=== PATIENT | female | born 1985 | race Caucasian/White ===

== ENCOUNTER → 2017-11-15 | Outpatient (CLI) | payer MEDICAID | LOC: LAB 10:50 | PROVIDERS: ATTEND Emergency Medicine | DX: R30.0 Dysuria (principal) | CPT/HCPCS: 87086 ==

== ENCOUNTER 2018-09-29 10:20 | Emergency (ER) | payer MEDICAID ==
[2018-09-29] MEDS ORDERED: ONDANSETRON HCL INJ/PF 4 MG/2 ML SDV IV ONE (11:59)
[2018-09-29] MEDS ORDERED: NORMAL SALINE 1000 ML 1,000 ML IV ONE (11:59)
--- NOTE | 2018-09-29 12:04 | ER Document Report ---
ED General - General Chief Complaint: Syncope Stated Complaint: POSSIBLE SYNCOPE Time Seen by Provider: 09/29/18 11:53 Primary Care Provider: ALYSON ALONSO MD [Primary Care Provider] - Follow up as needed Mode of Arrival: Ambulatory Information source: Patient, [facility] Records Notes: 33-year-old female at approximately 15 weeks and 2 days per reported last menstrual period which was 06/14/2018 presents after a syncopal episode just prior to arrival. Patient states that she was in the elevator with her mother going up to see her doctor when she smelled something that made her nauseous and told her mother that she felt like she was going to pass out. She states the next thing she remembered she was being picked up by her mom. Mother reports that patient lost consciousness for approximately 10-20 seconds. Patient currently complaining of nausea. States that she has had 4 days of persistent vomiting. She had a recent visit with her primary care physician who confirmed her through urine. Patient denies any abdominal pain, vaginal bleeding, preceding chest pain, shortness of breath. She has otherwise been well. TRAVEL OUTSIDE OF THE [place] IN LAST 30 DAYS: No - HPI Onset: Just prior to arrival Onset/Duration: Sudden Quality of pain: No pain Severity: None Pain Level: Denies Associated symptoms: Nausea, Vomiting. denies: Chest pain, Headache, Hurts to breath, Shortness of breath, Sweating Exacerbated by: Denies Relieved by: Denies Similar symptoms previously: No Recently seen / treated by doctor: Yes - Related Data Allergies/Adverse Reactions: iodine [Iodine] Allergy (Intermediate, Verified 09/29/18 10:22) Hives latex [Latex] Allergy (Intermediate, Verified 09/29/18 10:22) Hives morphine [Morphine] Allergy (Mild, Verified 09/29/18 10:22) swelling Past Medical History - General Information source: Patient - Social History Smoking Status: Former Smoker Frequency of alcohol use: None Drug Abuse: None Lives with: Spouse/Significant other Family History: Reviewed & Not Pertinent Patient has suicidal ideation: No Patient has homicidal ideation: No - Past Medical History Cardiac Medical History: Denies: Hx Coronary Artery Disease, Hx Heart Attack, Hx Hypertension Pulmonary Medical History: Reports: Hx Asthma Denies: Hx Bronchitis, Hx COPD, Hx Pneumonia Neurological Medical History: Denies: Hx Cerebrovascular Accident, Hx Seizures Musculoskeletal Medical History: Denies Hx Arthritis Psychiatric Medical History: Reports: Hx Attention Deficit Hyperactivity Disorder, Hx Bipolar Disorder, Hx Depression Past Surgical History: Reports: Hx Tonsillectomy. Denies: Hx Hysterectomy - Immunizations Hx Diphtheria, Pertussis, Tetanus Vaccination: Yes Review of Systems - Review of Systems Notes: REVIEW OF SYSTEMS: CONSTITUTIONAL : Denies fever, chills, or sweats. Denies recent illness. Denies weight loss, recent hospitalizations. EENT: Denies visual changes, eye pain. Denies sore throat, oral lesions, difficulty swallowing. CARDIOVASCULAR: Denies chest pain. Denies palpitations. Denies lower extremity edema. RESPIRATORY: Denies cough. Denies shortness of breath, wheezing. GASTROINTESTINAL: Denies abdominal pain or distention. Denies diarrhea. Denies blood in vomitus, stools, or per rectum. Denies black, tarry stools. Denies constipation. GENITOURINARY: Denies difficulty urinating, painful urination, frequency, blood in urine, or vaginal discharge. MUSCULOSKELETAL: Denies back or neck pain or stiffness. Denies joint pain or s welling. SKIN: Denies rash, lesions or sores. HEMATOLOGIC : Denies easy bruising or bleeding. LYMPHATIC: Denies swollen glands. NEUROLOGICAL: Denies confusion or altered mental status. Denies dizziness or lightheadedness. Denies headache. Denies weakness or paralysis. Denies problems difficulty with ambulation, slurred speech. Denies sensory loss, numbness, or tingling. Denies seizures. PSYCHIATRIC: Denies anxiety or stress. Denies depression, suicidal ideation, or homicidal ideation. Denies visual or auditory hallucinations. Physical Exam - Vital signs Vitals: Temp Pulse Resp BP Pulse Ox 98.1 F 75 14 103/69 99 09/29/18 10:36 09/29/18 10:36 09/29/18 10:36 09/29/18 10:36 09/29/18 10:36 - Notes Notes: PHYSICAL EXAMINATION: GENERAL: Well-appearing, well-nourished and in no acute distress. HEAD: Atraumatic, normocephalic. EYES: Pupils equal round and reactive to light, extraocular movements intact, conjunctiva are normal. ENT: Nares patent, oropharynx clear without exudates. Moist mucous membranes. NECK: Normal range of motion, supple without lymphadenopathy LUNGS: Breath sounds clear to auscultation bilaterally and equal. No wheezes rales or rhonchi. HEART: Regular rate and rhythm without murmurs ABDOMEN: Soft, nontender, nondistended abdomen. No guarding, no rebound. No masses appreciated. Female : deferred Musculoskeletal: Normal range of motion, no pitting or edema. No cyanosis. NEUROLOGICAL: Cranial nerves grossly intact. Normal speech, normal gait. Normal sensory, motor exams PSYCH: Normal mood, normal affect. SKIN: Warm, Dry, normal turgor, no rashes or lesions noted. Course - Re-evaluation Re-evalutation: 09/29/18 14:51 Laboratory 09/29/18 09/29/18 12:00 12:19 Beta HCG, Quant 01818.00 H Total Beta HCG POSITIVE Urine Color LES Urine Appearance SLIGHTLY-CLOUDY Urine pH 6.0 Ur Specific Kyle 1.027 Urine Protein 100 H Urine Glucose (UA) NEGATIVE Urine Ketones 20 H Urine Blood NEGATIVE Urine Nitrite NEGATIVE Urine Bilirubin SMALL H Urine Urobilinogen 4.0 H Ur Leukocyte Esterase TRACE H Urine WBC (Auto) 4 Urine RBC (Auto) 5 Squamous Epi Cells Auto 4 Urine Mucus (Auto) MANY Urine Ascorbic Acid 40 H Temp Pulse Resp BP Pulse Ox 98.1 F 72 18 113/75 100 09/29/18 13:59 09/29/18 13:59 09/29/18 13:59 09/29/18 13:59 09/29/18 13:59 09/29/18 14:52 33-year-old female at approximately 15 weeks and 2 days per reported last menstrual period which was 06/14/2018 presents after a syncopal episode just prior to arrival. Patient states that she was in the elevator with her mother going up to see her doctor when she smelled something that made her nauseous and told her mother that she felt like she was going to pass out. She states the next thing she remembered she was being picked up by her mom. Mother reports that patient lost consciousness for approximately 10-20 seconds. Patient currently complaining of nausea. States that she has had 4 days of persistent vomiting. She had a recent visit with her primary care physician who confirmed her through urine. Patient denies any abdominal pain, vaginal bleeding, preceding chest pain, shortness of breath. She has otherwise been well. Vital signs reviewed and within normal limits. Patient does not appear toxic she does appear mildly dehydrated. She is able to ambulate without difficulty. Urinalysis is without evidence of infection. Patient is and has a beta quant of over 26,000. Patient did receive IV fluids, Zofran. Prior to my reevaluation patient is requesting discharge home. She reports resolution of her nausea. Patient does have an upcoming [facility] appointment in 2 days. She was urged to return if she experienced any abdominal pain or vaginal bleeding. Patient was evaluated and treated as appropriate for the patient's presenting symptoms and complaint, with consideration of any critical or life threatening conditions that may be associated with their obtained history and exam as noted above. All results were discussed with patient and her mother who is at the bedside patient provided the opportunity to ask questions, and express concerns. Patient was educated on treatments based on their presumed diagnosis as noted above. At this time we will discharge the patient with return precautions and follow-up recommendations. Verbal discharge instructions given a the bedside. Medication warnings reviewed. Patient is in agreement with this plan and has verbalized understanding of return precautions. After careful consideration I feel that that patient can be safely discharged from the emergency department, they were advised to followup with a primary care physician in 2-3 days. Dictation on this chart was performed using voice recognition software and may result in unintended grammatical, spelling, syntax or errors. - Vital Signs Vital signs: Temp Pulse Resp BP Pulse Ox 98.1 F 72 18 113/75 100 09/29/18 13:59 09/29/18 13:59 09/29/18 13:59 09/29/18 13:59 09/29/18 13:59 - Laboratory Laboratory results interpreted by me: 09/29/18 09/29/18 12:00 12:19 Beta HCG, Quant 21807.00 H Urine Protein 100 H Urine Ketones 20 H Urine Bilirubin SMALL H Urine Urobilinogen 4.0 H Ur Leukocyte Esterase TRACE H Urine Ascorbic Acid 40 H Discharge - Discharge Clinical Impression: Dehydration Syncope Qualifiers: Syncope type: unspecified Qualified Code(s): R55 - Syncope and collapse Nausea & vomiting Qualifiers: Vomiting type: unspecified Vomiting Intractability: non-intractable Qualified Code(s): R11.2 - Nausea with vomiting, unspecified Qualifiers: Weeks of gestation: unspecified Qualified Code(s): Z34.90 - Encounter for supervision of normal , unspecified, unspecified trimester Condition: Good Disposition: HOME, SELF-CARE Instructions: Dehydration ([facility]), Intravenous (IV) Fluids ([facility]), Vomiting ([facility]) Additional Instructions: Please keep your scheduled appointment with your [facility] in 2 days on October 01, 2017. Please return if you experience any abdominal pain, vaginal bleeding, or any other symptoms that are concerning to you. Follow up with your [id number] hours for further care or return to the ED IMMEDIATELY if symptoms worsen or you have any concerns. If you cannot afford to follow up with your primary care physician a list of low cost clinics have been provided at the end of your discharge papers as well. Most prescribed medications have multiple side effects. The safest thing to do is when filling your prescription speak to your pharmacist regarding possible interactions with your normal home medications and over the counter medications such as Ibuprofen, Tylenol, Benadryl. If you experience any symptoms that cause you discomfort or concern you should discontinue the medication immediately and return to the emergency room or call your primary care physician. Prescriptions: Ondansetron [Zofran Odt 4 mg Tablet] 1 tab PO Q6H PRN #15 tab.rapdis PRN Reason: For Nausea/Vomiting Referrals: ALYSON ALONSO MD [Primary Care Provider] - Follow up as needed
[2018-09-29 13:04] LABS: APPEARANCE,URINE SLIGHTLY-CLOUDY; BILIRUBIN,URINE SMALL (NEGATIVE); COLOR,URINE AMBER; GLUCOSE, URINE NEGATIVE (NEGATIVE); KETONES,URINE 20 mg/dL (NEGATIVE); LEUKOCYTE ESTERASE,URINE TRACE (NEGATIVE); NITRITE,URINE NEGATIVE (NEGATIVE); PROTEIN,URINE 100 mg/dL (NEGATIVE); URINE SPECIFIC GRAVITY 1.027
[2018-09-29 14:03] VITALS: BP 113/75
--- NOTE | 2018-09-30 13:08 | EKG REPORT ---
SEVERITY:- NORMAL ECG - SINUS RHYTHM : Confirmed by: Abhinav Lopes MD 30-Sep-2018 13:07:24
== END 2018-09-29 14:03 | disposition home or self-care (01) ==
LOC: ER 10:20
DX: O26.892 Other specified pregnancy related conditions, second trimester (principal); R55 Syncope and collapse; O21.9 Vomiting of pregnancy, unspecified; O99.282 Endocrine, nutritional and metabolic diseases complicating pregnancy, second trimester; E86.0 Dehydration; O99.512 Diseases of the respiratory system complicating pregnancy, second trimester; J45.909 Unspecified asthma, uncomplicated; Z3A.15 15 weeks gestation of pregnancy; Z87.891 Personal history of nicotine dependence; Z91.040 Latex allergy status; Z88.5 Allergy status to narcotic agent
CPT/HCPCS: 93005; 99284; 96361; 96374; 36415; 84702; 81001; 93010; J2405; J7030

== ENCOUNTER 2019-02-07 13:03 | Inpatient (IN) | payer MEDICAID ==
[2019-02-07 13:41] LABS: BACTERIA (WET MOUNT) 4+ BACTERIA SEEN; RBCS (WET MOUNT) FEW RBCS SEEN; T.VAGINALIS (WET MOUNT) NO TRICHOMONAS SEEN; WBCS (WET MOUNT) 2+ WBCS SEEN; YEAST (WET MOUNT) NO YEAST SEEN
[2019-02-07 13:49] LABS: APPEARANCE,URINE SLIGHTLY-CLOUDY; BILIRUBIN,URINE NEGATIVE (NEGATIVE); COLOR,URINE YELLOW; GLUCOSE, URINE NEGATIVE (NEGATIVE); KETONES,URINE 20 mg/dL (NEGATIVE); LEUKOCYTE ESTERASE,URINE TRACE (NEGATIVE); NITRITE,URINE NEGATIVE (NEGATIVE); PROTEIN,URINE 30 mg/dL (NEGATIVE); URINE SPECIFIC GRAVITY 1.014
[2019-02-07 14:01] LABS: URINE AMPHETAMINES SCREEN NEGATIVE; URINE BARBITURATES SCREEN NEGATIVE; URINE BENZODIAZEPINES SCREEN NEGATIVE; URINE COCAINE SCREEN NEGATIVE; URINE MARIJUANA (THC) SCREEN NEGATIVE; URINE METHADONE SCREEN NEGATIVE; URINE PHENCYCLIDINE SCREEN NEGATIVE
[2019-02-07] MEDS ORDERED: RINGERS SOLUTION,LACTATED 1,000 ML IV PRN (14:19)
[2019-02-07] MEDS ORDERED: AMPICILLIN SODIUM 2 GM in NORMAL SALINE 100 ML IV ONE (14:19)
[2019-02-07] MEDS ORDERED: MAGNESIUM SULFATE 4 GM/100 ML RTUPB IV ONE ×2 (14:20→14:23)
[2019-02-07] MEDS ORDERED: MAGNESIUM SULFATE 20 GM/500 ML RTUINJ IV ONE (14:20)
[2019-02-07] MEDS ORDERED: ONDANSETRON HCL INJ/PF 4 MG/2 ML SDV IV ONE (14:20)
[2019-02-07] MEDS ORDERED: BETAMET ACET/BETAMET NA INJ 6 MG/1 ML ONE (14:20)
[2019-02-07] MEDS ORDERED: ONDANSETRON HCL INJ/PF 4 MG/2 ML SDV ONE (14:21)
[2019-02-07] MEDS ORDERED: MAGNESIUM SULFATE 20 GM/500 ML RTUINJ IV PRN (14:23)
[2019-02-07] MEDS ORDERED: BETAMET ACET/BETAMET NA INJ 6 MG/1 ML IM ONE (14:24)
--- NOTE | 2019-02-07 14:28 | Admission Physical ---
Datetime Report Generated by CPN: 02/07/2019 14:28 CURRENT ADMISSION Chief Complaint: Uterine Contractions Indication for Induction: Not Applicable Admit Impression : , Intrauterine ; Observation/Evaluation Admit Plan: Admit to Unit; Observation/Evaluation ALLERGIES Medication Allergies: Yes Medication Allergies: iodine/MO/Hives (02/07/2019); morphine/SD/swelling (02/07/2019); latex/MO/Hives (02/07/2019) Latex: Latex Allergies OBSTETRICAL HISTORY EDC: 03/21/2019 00:00 : 2 Para: 1 Term: 0 : 1 Livin Gestational Diabetes: No Rh Sensitization: No Incompetent Cervix: Unknown CELESTINO: No Infertility: No ART Treatment: No Uterine Anomaly: No IUGR: No Hx Previous C/S: No Macrosomia: No Hx Loss/Stillborn: No PIH: No Hx : No Placenta Previa/Abruption: No Depression/PP Depression: Yes PTL/PROM: Yes Post Hemorrhage: No Current Procedures: Ultrasound Obstetrical History Comments: G1- 2006 34 weeks PROM G2- current refused p17 SEE RECORDS Alcohol: No Marijuana : No Cocaine: No Other Illicit Drugs: No Cigarettes: Former Smoker. [id number] MEDICAL HISTORY Diabetes: No Blood Transfusion: No Pulmonary Disease (Asthma, TB): Yes Breast Disease: No Hypertension: No Child Support Officer Surgery: No Heart Disease: No Hosp/Surgery: Yes Autoimmune Disorder: No Anesthetic Complications: No Kidney Disease: No Abnormal Pap Smear: Yes Neuro/Epilepsy: No Psychiatric Disorders: Yes Other Medical Diseases: No Hepatitis/Liver Disease: No Significant Family History: No Varicosities/Phlebitis: No Trauma/Violence : No Thyroid Dysfunction: No Medical History Comments: scoliosis, bipolar, depression, anxiety, asthma- proair, tonsilectomy, endometriosis, ADHD, ovarian cyst INFECTIOUS HISTORY Infectious History Comments: HPV 2018, chlamydia- PHYSICAL EXAM General: Normal HEENT: Normal Neurologic: Normal Thyroid: Normal Heart: Normal Lungs: Normal Breast: Normal Back: Deferred Abdomen: Normal Genitourinary Exam: Normal Extremities: Normal DTRs: Normal Pelvic Type: Adequate Vital Signs: Reviewed VAGINAL EXAM Dilatation: 4 Effacement: 80 Station: 0 MEMBRANES Pooling: Negative Membranes: Intact FETUS A EGA: 34.0 Monitoring: External US FHR- Baseline: 130 Variability: Moderate 6-25bpm Decelerations: None FHR Category: Category I Admit Comment: Admit for magnesium, steroids and antibiotics. PLANS FOR LABOR AND DELIVERY Labor and Delivery: Other, Specify Pain Management: Natural Feeding Preference: Both Benefit of Breast Feed Discussed: Yes Circumcision: Yes INFORMED CONSENT Signature: with User ID: [email or web address]
[2019-02-07 14:49] LABS: ABSOLUTE BASOPHILS # (AUTO) 0.1 10^3/uL (0.0-0.2); ABSOLUTE LYMPHOCYTES (AUTO) 1.4 10^3/uL (0.5-4.7); ABSOLUTE MONOCYTES (AUTO) 0.8 10^3/uL (0.1-1.4); BASOPHILS % (AUTO) 0.5 % (0-2); HEMATOCRIT 34.1 % (36.0-47.0); HEMOGLOBIN 11.4 g/dL (12.0-15.5); LYMPHOCYTES % (AUTO) 10.8 % (13-45); MEAN CORPUSCULAR HEMOGLOBIN 27.7 pg (27.0-33.4); MEAN CORPUSCULAR HGB CONC 33.6 g/dL (32.0-36.0); MEAN CORPUSCULAR VOLUME 82 fl (80-97); MONOCYTES % (AUTO) 6.1 % (3-13); PLATELET COUNT 361 10^3/uL (150-450); RED BLOOD COUNT 4.13 10^6/uL (3.72-5.28); RED CELL DISTRIBUTION WIDTH 13.7 % (11.5-14.0); SEGMENTED NEUTROPHILS % (AUTO) 82.6 % (42-78); TOTAL CELLS COUNTED % (AUTO) 100 %; WHITE BLOOD COUNT 13.3 10^3/uL (4.0-10.5)
[2019-02-07] MEDS ORDERED: AMPICILLIN SOD INJ 2 GM VIAL ONE (14:53)
[2019-02-07] MEDS ORDERED: ONDANSETRON HCL 8 MG TABLET PO ONE (15:00)
[2019-02-07] MEDS ORDERED: AMPICILLIN SOD INJ 2 GM VIAL IV ONE (15:00)
[2019-02-07 15:20] LABS: CHLAM PCR NOT DETECTED (NOT DETECT)
[2019-02-07] MEDS ORDERED: NALBUPHINE HCL INJ 10 MG/1 ML AMPULE INJ ONE (16:12)
[2019-02-07] MEDS ORDERED: PROMETHAZINE HCL INJ 25 MG/1 ML VIAL IV ONE (16:12)
[2019-02-07] MEDS ORDERED: PROMETHAZINE HCL INJ 25 MG/1 ML VIAL ONE (16:18)
[2019-02-07] MEDS ORDERED: NALBUPHINE HCL INJ 10 MG/1 ML AMPULE ONE (16:18)
[2019-02-07] MEDS ORDERED: LIDOCAINE 1% INJ-PF (10 MG/ML) 30 ML SDV ONE (17:40)
[2019-02-07] MEDS ORDERED: OXYTOCIN/NORMAL SALINE 20 UNIT/1,000 ML RTUINJ ONE (17:40)
[2019-02-07] MEDS ORDERED: MISOPROSTOL 0.2 MG TABLET ONE (17:40)
[2019-02-07] MEDS ORDERED: NA PHOS,M-B/NA PHOS,DI-BA (ADULT) 133 ML ENEMA PR PRN (17:52)
[2019-02-07] MEDS ORDERED: PROMETHAZINE HCL 25 MG TABLET PO PRN (17:52)
[2019-02-07] MEDS ORDERED: ACETAMINOPHEN WITH CODEINE #3 TABLET PO PRN ×2 (17:52)
[2019-02-07] MEDS ORDERED: PSEUDOEPHEDRINE HCL 30 MG TABLET PO PRN (17:52)
[2019-02-07] MEDS ORDERED: GLYCERIN/WITCH HAZEL LEAF 1 EACH MED..WIPE TP PRN (17:52)
[2019-02-07] MEDS ORDERED: DIPHENHYDRAMINE HCL 25 MG CAPSULE PO PRN (17:52)
[2019-02-07] MEDS ORDERED: OXYTOCIN/NORMAL SALINE 20 UNIT/1,000 ML RTUINJ IV PRN (17:52)
[2019-02-07] MEDS ORDERED: DIPH/PERTUSS(ACELL)/TETANUS VAC/PF 0.5 ML SYR (>=10YO) IM PRN (17:52)
[2019-02-07] MEDS ORDERED: ZOLPIDEM TARTRATE 5 MG TABLET PO PRN (17:52)
[2019-02-07] MEDS ORDERED: MAGNESIUM HYDROXIDE SUSP 30 ML UDCUP PO PRN (17:52)
[2019-02-07] MEDS ORDERED: DIBUCAINE 1% OINTMENT 56 GM TP PRN (17:52)
[2019-02-07] MEDS ORDERED: PROMETHAZINE HCL 25 MG SUPP.RECT PR PRN (17:52)
[2019-02-07] MEDS ORDERED: BENZOCAINE/MENTHOL AEROSOL SPRAY 56 ML TOP PRN (17:52)
[2019-02-07] MEDS ORDERED: PROMETHAZINE HCL INJ 25 MG/1 ML VIAL IV PRN (17:52)
[2019-02-07] MEDS ORDERED: MEASLES,MUMPS&RUBELLA VACC/PF 0.5 ML VIAL SUBCUT PRN (17:52)
[2019-02-07] MEDS ORDERED: ACETAMINOPHEN 650 MG SUPP.RECT PR PRN (17:52)
[2019-02-07] MEDS ORDERED: AMPICILLIN SOD INJ 1 GM VIAL IV SCH (18:00)
[2019-02-07] MEDS ORDERED: AMPICILLIN SODIUM 1 GM in NORMAL SALINE 50 ML IV SCH (18:21)
[2019-02-07] MEDS: DOCUSATE SODIUM 100 MG CAPSULE PO SCH (21:15)
[2019-02-07] MEDS: FERROUS SULFATE 325 MG TABLET PO SCH (21:16)
[2019-02-07] MEDS: IBUPROFEN 800 MG TABLET PO SCH (21:36)
[2019-02-07] MEDS: FAMOTIDINE 20 MG TABLET PO SCH (21:36)
[2019-02-08] MEDS: IBUPROFEN 800 MG TABLET PO SCH ×3 (05:00→21:16)
[2019-02-08 07:17] LABS: HEMATOCRIT 33.6 % (36.0-47.0); HEMOGLOBIN 10.9 g/dL (12.0-15.5); MEAN CORPUSCULAR HEMOGLOBIN 27.1 pg (27.0-33.4); MEAN CORPUSCULAR HGB CONC 32.5 g/dL (32.0-36.0); MEAN CORPUSCULAR VOLUME 83 fl (80-97); PLATELET COUNT 314 10^3/uL (150-450); RED BLOOD COUNT 4.03 10^6/uL (3.72-5.28); RED CELL DISTRIBUTION WIDTH 13.4 % (11.5-14.0); WHITE BLOOD COUNT 21.9 10^3/uL (4.0-10.5)
[2019-02-08] MEDS: FAMOTIDINE 20 MG TABLET PO SCH ×2 (09:54→21:16)
[2019-02-08] MEDS: PRENATAL VITAMIN W DHA CAPSULE PO SCH (09:54)
[2019-02-08] MEDS: DOCUSATE SODIUM 100 MG CAPSULE PO SCH ×2 (09:54→17:23)
[2019-02-08] MEDS: FERROUS SULFATE 325 MG TABLET PO SCH ×2 (09:56→17:23)
[2019-02-08] MEDS: SENNOSIDES/DOCUSATE 8.6-50 MG 1 EACH TABLET PO SCH (09:56)
--- NOTE | 2019-02-08 12:28 | Delivery Summary ---
Del Sum A-C Datetime Report Generated by CPN: 02/08/2019 12:27 DELIVERY PERSONNEL DELIVERY PERSONNEL: [id number] Delivery Doctor:: Krystyna Pineda MD Labor and Delivery Nurse:: Viviane Leyva RNjacquard fixer Nurse:: Mee Solo RN Nursery Nurse:: Jannette Adams RN Nursery Nurse:: Jacqui Ronquillo RN Co Founder And President/TECHNICAL OPERATIONS MANAGER: Anuja Mccartney, PRESCHOOL SUBSTITUTE TEACHER Co Founder And President/TECHNICAL OPERATIONS MANAGER: Antonia Frandy, PRESCHOOL SUBSTITUTE TEACHER MATERNAL INFORMATION Delivery Anesthesia: None Medications After Delivery: Pitocin Bolus-Please Comment Meds After Delivery Comment: pitocin 20 units in 1 L NS bolusing per order Estimated Blood Loss (ml): 250 Delivery QBL: 75 Maternal Complications: Other Maternal Complications: Other Complication Details: labor LABOR SUMMARY EDC: 03/21/2019 00:00 No. Babies in Womb: 1 Attempted: No Labor Anesthesia: IV Sedation LABOR INFORMATION Reason for Induction: Not Applicable Onset of Labor: 02/06/2019 23:00 Complete Dilatation: 02/07/2019 17:33 Oxytocin: N/A Group B Beta Strep: unknown Antibiotics # of Doses: 1 Antibiotics Time of Last Dose: 1500 Name of Antibiotic Given: ampicillin Steroids Given: Partial Course MEMBRANES Membranes Rupture Method: Spontaneous Rupture of Membranes: 02/07/2019 17:33 Length of Rupture (hr): 0.12 Amniotic Fluid Color: Clear Amniotic Fluid Amount: Small Amniotic Fluid Odor: None STAGES OF LABOR Stage 1 hr: 18 Stage 1 min: 33 Stage 2 hr: 0 Stage 2 min: 7 Stage 3 hr: 0 Stage 3 min: 5 Total Time in Labor hr: 18 Total Time in Labor min: 45 VAGINAL DELIVERY Episiotomy: None Laceration #1: None Laceration Extension #1: N/A Laceration Repair: Not Applicable Sponge Count Correct: Vaginal Sweep Performed Sharps Count Correct: Yes CSECTION DELIVERY Primary Indication: N/A Secondary Indication: N/A CSection Incidence: N/A Labor: N/A Elective: N/A CSection Incision: N/A BABY A INFORMATION Delivery Date/Time: 02/07/2019 17:40 Method of Delivery: Vaginal Born in Route : No : N/A Forceps: N/A Vacuum Extraction: N/A Shoulder Dystocia : No PRESENTATION/POSITION BABY A Presentation: Cephalic Cephalic Presentation: Vertex Vertex Position: Left Occipital Anterior Breech Presentation: N/A PLACENTA INFORMATION BABY A Placenta Delivery Time : 02/07/2019 17:45 Placenta Method of Delivery: Spontaneous Placenta Method of Delivery: Spontaneous Placenta Status: Delivered SCORES BABY A Heart Rate 1 min: >100 bpm Resp Effort 1 min: Slow, Irregular Reflex Irritability 1 min: Cough or Sneeze or Pulls Away Muscle Tone 1 min: Active Motion Color 1 min: Blue/Pale Resuscitation Effort 1 min: Tactile Stimulation SCORE 1 MIN: 7 Heart Rate 5 min: >100 bpm Resp Effort 5 min: Slow, Irregular Reflex Irritability 5 min: Cough or Sneeze or Pulls Away Muscle Tone 5 min: Active Motion Color 5 min: Blue/Pale Resuscitation Effort 5 min: Tactile Stimulation SCORE 5 MIN: 7 INFORMATION BABY A Gestational Age at Delivery: 34.0 Gestational Status: Late - 34- 36.6 Weeks Outcome : Liveborn Condition : Stable Sex: Male IDENTIFICATION BABY A Infant Verification Date/Time: 02/07/2019 18:03 ID Band Number: [id number] Mother's Name Verified: Yes Infant RN Verifying Infant: HYany Michauds, RN and C. [place], RN WEIGHT/LENGTH BABY A Birthweight (gm): 2037 Weight (lb): 4 Weight (oz): 8 Infant Length (in): 17.00 Length (cm): 43.18 CORD INFORMATION BABY A No. Cord Vessels: 3 Nuchal Cord : N/A Cord Blood Taken: Yes-For Storage (Mom's Blood type +) Infant Suction: None ASSESSMENT BABY A Infant Complications: None Physical Findings at Delivery: Within Normal Limits Skin to Skin: Yes Skin to Skin Time (min): 1 Housing Counselor/ALS Called : Yes Infant Care By: Douglas Ronquillo RN, Douglas Adams RN Transferred To: NICU BABY B INFORMATION : N/A SIGNATURES Signature: with User ID: [email or web address]
[2019-02-08] MEDS ORDERED: MEASLES,MUMPS&RUBELLA VACC/PF 0.5 ML VIAL SUBCUT PRN (12:30)
[2019-02-08] MEDS ORDERED: DIPH/PERTUSS(ACELL)/TETANUS VAC/PF 0.5 ML SYR (>=10YO) IM PRN (12:30)
[2019-02-08] MEDS: ACETAMINOPHEN 325 MG TABLET PO PRN (13:25)
--- NOTE | 2019-02-08 17:30 | PDOC PROGRESS REPORT ---
Subjective-OB Progress Note for:: 02/08/19 Subjective: 34yo G2 now P2 s/p ppd1. Ambulating, voiding and without difficult. Reports increased cramping when pumping and had some itching with T3 yesterday, desires different pain medication . No other concerns Physical Exam (OB) Vital Signs: Temp Pulse Resp BP Pulse Ox 97.4 F 52 L 18 145/79 H 100 02/08/19 07:29 02/08/19 07:29 02/07/19 20:20 02/08/19 07:29 02/08/19 07:29 Intake & Output 02/07/19 02/08/19 02/09/19 06:59 06:59 06:59 Intake Total 400 Balance 400 Weight 64 kg - General General Appearance: Appears well In distress: None - PIH/Pre-Eclampsia Clonus: Negative Headache: Absent Epigastric Pain: No Visual Changes: No - Episiotomy/Laceration Site Condition: N/A - Lochia Lochia Amount: Scant < 10 ml Lochia Color: Rubra/Red - Abdomen Hernia Present: No Fundal Description: Firm, Midline Fundal Height: u/u - u/2 - Respiratory Respiratory Status: No respiratory distress - Extremities Upper extremity: Normal inspection Lower extremities: Normal inspection - Neurological Cognition: Normal Orientation: AAOx4 - Psychological Associated symptoms: Normal affect, Normal mood Objective-Diagnostic Laboratory: 02/08/19 07:02 02/08/19 07:02 WBC 21.9 H RBC 4.03 Hgb 10.9 L Hct 33.6 L MCV 83 MCH 27.1 MCHC 32.5 RDW 13.4 Plt Count 314 Assessment and Plan(PN) - Assessment and Plan (1) delivery Is this a current diagnosis for this admission?: Yes Plan: routine pp care (2) Acute blood loss anemia Is this a current diagnosis for this admission?: Yes Plan: Increase dietary iron and FeSO4 BID - Time Spent with Patient Time with patient: Less than 15 minutes Medications reviewed and adjusted accordingly: Yes - Disposition Anticipated Discharge: Home Within: within 24 hours
[2019-02-09] MEDS: ACETAMINOPHEN 325 MG TABLET PO PRN (03:11)
[2019-02-09] MEDS: IBUPROFEN 800 MG TABLET PO SCH ×2 (05:12→13:48)
[2019-02-09 07:57] VITALS: BP 137/74
--- NOTE | 2019-02-09 10:04 | PDOC DISCHARGE SUMMARY ---
Final Diagnosis Discharge Date: 02/09/19 - Final Diagnosis (1) Acute blood loss anemia Is this a current diagnosis for this admission?: Yes (2) delivery Is this a current diagnosis for this admission?: Yes Discharge Data - Discharge Medication Home Medications: Budesonide/Formoterol Fumarate [Symbicort HFA 80-4.5 mcg Inhaler 6.9 gm] 2 puff IH ASDIR PRN 03/18/12 Lisdexamfetamine Dimesylate [Vyvanse] 20 mg PO DAILY 09/02/14 Ondansetron [Zofran Odt 4 mg Tablet] 1 tab PO Q6H PRN #15 tab.rapdis 09/29/18 Reason(s) for Admission: Onset of Labor, Labor Procedures: NST Intrapartum Procedure(s): Spontaneous Vaginal Delivery - Diagnosis Test Laboratory: Temp Pulse Resp BP Pulse Ox 98 F 50 L 18 137/74 H 98 02/09/19 07:28 02/09/19 07:28 02/09/19 07:28 02/09/19 07:28 02/09/19 07:28 02/07/19 02/07/19 02/08/19 13:09 14:28 07:02 RBC 4.13 4.03 Hgb 11.4 L 10.9 L Hct 34.1 L 33.6 L Urine Opiates Screen NEGATIVE - Discharge information/Instructions Discharge Activity: Balance Activity w/Rest, Pelvic Rest Discharge Diet: Regular Disposition: HOME, SELF-CARE Follow up with: [facility] in: 4
[2019-02-09] MEDS: PRENATAL VITAMIN W DHA CAPSULE PO SCH (10:39)
[2019-02-09] MEDS: DOCUSATE SODIUM 100 MG CAPSULE PO SCH (10:39)
[2019-02-09] MEDS: FAMOTIDINE 20 MG TABLET PO SCH (10:39)
[2019-02-09] MEDS: SENNOSIDES/DOCUSATE 8.6-50 MG 1 EACH TABLET PO SCH (10:39)
[2019-02-09] MEDS: FERROUS SULFATE 325 MG TABLET PO SCH (10:39)
== END 2019-02-09 14:30 | disposition home or self-care (01) | DRG 806 ==
LOC: LC 13:03 → LR 14:24 → 2S 20:15
PROVIDERS: ADMIT Obstetrics & Gynecology; ATTEND Obstetrics & Gynecology
PROC: 10E0XZZ Delivery of Products of Conception, External Approach (ICD-10-PCS; principal; 2019-02-07)
PROC: 3E0234Z Introduction of Serum, Toxoid and Vaccine into Muscle, Percutaneous Approach (ICD-10-PCS; 2019-02-09)
DX: O60.14X0 Preterm labor third trimester with preterm delivery third trimester, not applicable or unspecified (principal); D62 Acute posthemorrhagic anemia; Z37.0 Single live birth; O90.81 Anemia of the puerperium; O99.52 Diseases of the respiratory system complicating childbirth; O99.344 Other mental disorders complicating childbirth; F31.9 Bipolar disorder, unspecified; F41.9 Anxiety disorder, unspecified; J45.909 Unspecified asthma, uncomplicated; Z3A.34 34 weeks gestation of pregnancy; Z23 Encounter for immunization
CPT/HCPCS: 36415; 80307; 81001; 84112; 85025; 85027; 86592; 86850; 86900; 86901; 87081; 87210; 87491; 87591; 90715; 96372; J0290; J0702; J2300; J2405; J2550; J2590; J3475; J3490

== ENCOUNTER 2020-01-03 07:09 | Day surgery (SDC) | payer MEDICAID ==
[2019-12-29 10:16] LABS: APPEARANCE,URINE CLEAR; BILIRUBIN,URINE NEGATIVE (NEGATIVE); COLOR,URINE STRAW; GLUCOSE, URINE NEGATIVE (NEGATIVE); KETONES,URINE NEGATIVE (NEGATIVE); LEUKOCYTE ESTERASE,URINE TRACE (NEGATIVE); NITRITE,URINE NEGATIVE (NEGATIVE); PROTEIN,URINE NEGATIVE (NEGATIVE); URINE SPECIFIC GRAVITY 1.006; UROBILINOGEN,URINE NEGATIVE mg/dL (<2.0)
[2019-12-29 10:27] LABS: ADD MANUAL MICROSCOPIC YES
[2019-12-29 10:32] LABS: BACTERIA,URINE 2+ /HPF
[2019-12-29 10:38] LABS: HEMATOCRIT 38.8 % (36.0-47.0); MEAN CORPUSCULAR HEMOGLOBIN 29.7 pg (27.0-33.4); MEAN CORPUSCULAR HGB CONC 33.5 g/dL (32.0-36.0); MEAN CORPUSCULAR VOLUME 89 fl (80-97); PLATELET COUNT 368 10^3/uL (150-450); RED BLOOD COUNT 4.37 10^6/uL (3.72-5.28); RED CELL DISTRIBUTION WIDTH 12.6 % (11.5-14.0); WHITE BLOOD COUNT 6.1 10^3/uL (4.0-10.5)
[2019-12-29 11:02] LABS: ALBUMIN 4.4 g/dL (3.5-5.0); ALKALINE PHOSPHATASE 56 U/L (38-126); ANION GAP 6 (5-19); ASPARTATE AMINO TRANSFERASE 23 U/L (14-36); BILIRUBIN,TOTAL 0.5 mg/dL (0.2-1.3); BLOOD UREA NITROGEN 12 mg/dL (7-20); CALCIUM 9.6 mg/dL (8.4-10.2); CARBON DIOXIDE 31 mmol/L (22-30); CHLORIDE 102 mmol/L (98-107); GLUCOSE 92 mg/dL (75-110); TOTAL PROTEIN 7.3 g/dL (6.3-8.2)
[~2020-01-03 07:09] MED LIST: LACTATED RINGERS 1000 ML IV PRN; LIDOCAINE 0.5% INJ-PF (5 MG/ML) 50 ML SDV SUBCUT PRN
[2020-01-03] MEDS ORDERED: CEFAZOLIN 1 GM/D5W RTU 1 GM/50 ML RTUPB IV ONE (07:35)
[2020-01-03] MEDS ORDERED: ALBUTEROL SULFATE 0.083% NEB 2.5 MG/3 ML AMPUL NEB ONE (07:35)
[2020-01-03] MEDS ORDERED: DEXAMETHASONE SOD PHOSPHATE INJ 4 MG/1 ML VIAL ONE (09:19)
[2020-01-03] MEDS ORDERED: ONDANSETRON HCL INJ/PF 4 MG/2 ML SDV ONE (09:19)
[2020-01-03] MEDS ORDERED: MIDAZOLAM 2 MG/2 ML INJ ONE (09:19)
[2020-01-03] MEDS ORDERED: PROPOFOL INJ 200 MG/20 ML VIAL IV ONE (09:19)
[2020-01-03] MEDS ORDERED: FENTANYL CITRATE INJ/PF 250 MCG/5 ML AMPULE ONE (09:19)
[2020-01-03] MEDS ORDERED: BUPIVACAINE HCL 0.25 % INJ/PF (2.5 MG/1 ML) 30 ML VIAL ONE (09:21)
[2020-01-03] MEDS ORDERED: DIPHENHYDRAMINE HCL 50 MG/ML VIAL IV PRN (09:59)
[2020-01-03] MEDS ORDERED: PROMETHAZINE HCL INJ 25 MG/1 ML VIAL IV PRN (09:59)
[2020-01-03] MEDS ORDERED: FENTANYL CITRATE INJ/PF 100 MCG/2 ML AMPUL IV PRN ×2 (09:59)
[2020-01-03] MEDS ORDERED: MEPERIDINE HCL/PF INJ 25 MG/1 ML DISP.SYRIN IV PRN (09:59)
--- NOTE | 2020-01-03 10:48 | Operative Report ---
Operative Report DATE OF SURGERY: 01/03/20 PREOPERATIVE DIAGNOSIS: Pelvic pain hypermenorrhea POSTOPERATIVE DIAGNOSIS: Same plus endometriosis OPERATION: LAVH bilateral salpingectomy SURGEON: KATHARINE OPP ANESTHESIA: GA TISSUE REMOVED OR ALTERED: Uterus and tubes ESTIMATED BLOOD LOSS: 50 cc PROCEDURE: Patient placed in the dorsolithotomy was prepped draped sterile fashion. Next was placed cervix visualized and grasped with a Hulka tenaculum took the speculum was removed. During the abdomen were somewhat like a stimulator incision was made trocar was reduced in flexion abdomen. Pelvis noted to be normal left ovary and right ovary were approximately same size and both were free. Puncture made lateral to the first on the left and a 5 trocar was reduced. Harmonic scalpel the left tube was divided along the mesosalpinx discontinue down the broad ligament to the ascending branch of the uterine artery on the left. Stage was P on the right. It was decided intraoperatively that the left ovary appeared to be completely normal with no adhesions no enlarged was no cyst and decided to leave that in situ. Lateral flap was created with sharp dissection. And deflated and the instruments removed. Attention turned to the pelvis where the speculum is placed cervix visualized the Hulka neck was removed cervix grasped with a Toni thyroid clamp posterior cul-de-sacs entered with sharp dissection in the posterior parietoperitoneum sutured posterior cuff with 2-0 Vicryl. Sharply circumscribed. Tear peritoneum was entered with sharp dissection. Serial clamps the centimeters each pedicle being divided and suture 2-0 Vicryl. This continued to the level where the above incisions were encountered and the uterus and tubes were removed. Urine remains good after our procedure she was taken recovery in good condition.
[2020-01-03] MEDS ORDERED: ONDANSETRON HCL 8 MG TABLET PO PRN (11:01)
[2020-01-03] MEDS ORDERED: HYDROMORPHONE HCL 2 MG TABLET PO PRN (11:01)
[2020-01-03] MEDS ORDERED: FENTANYL CITRATE INJ/PF 100 MCG/2 ML AMPUL ONE (11:06)
[2020-01-03] MEDS: FENTANYL CITRATE INJ/PF 100 MCG/2 ML AMPUL IV PRN ×2 (11:06→11:25)
[2020-01-03] MEDS ORDERED: PROMETHAZINE HCL INJ 25 MG/1 ML VIAL ONE (11:07)
[2020-01-03] MEDS ORDERED: IBUPROFEN 800 MG TABLET PO SCH (14:00)
[2020-01-03] MEDS ORDERED: ROCURONIUM BROMIDE INJ 50 MG/5 ML VIAL IV ONE (14:43)
[2020-01-03] MEDS ORDERED: GLYCOPYRROLATE 1 MG/5 ML VIAL ONE (14:43)
[2020-01-03 16:42] VITALS: BP 135/73
== END 2020-01-03 17:46 | disposition home or self-care (01) ==
LOC: OROUT 07:09 → 2N 12:00 → OROUT 17:46
PROVIDERS: ATTEND Obstetrics & Gynecology Gynecology
DX: N92.0 Excessive and frequent menstruation with regular cycle (principal); N80.9 Endometriosis, unspecified; R10.2 Pelvic and perineal pain; J45.909 Unspecified asthma, uncomplicated; Z88.5 Allergy status to narcotic agent; N94.19 Other specified dyspareunia; Z91.040 Latex allergy status; Z87.891 Personal history of nicotine dependence; Z03.818 Encounter for observation for suspected exposure to other biological agents ruled out
CPT/HCPCS: 86900; 86901; 36415; 86850; 85027; 87635; 81025; 80053; 81001; 88307 ×2; 58552; J2250; J0690; J3490 ×4; J1100; J3010 ×2; J2550; J2405; J2704; C9803